=== PATIENT | male | born 1960 | race Caucasian/White ===

== ENCOUNTER 2017-10-27 08:43 | Inpatient (IN) | payer BC ==
[2017-10-25 13:16] VITALS: BP 121/82
[~2017-10-27] VITALS: Ht 182.9 cm; Wt 93.6 kg
[~2017-10-27 08:43] MED LIST: BUPIVACAINE/PF 0.25% ONE; LOSA50TA6 PO; THROMBIN 5,000 UNIT VIAL TP ONE
[2017-10-27] MEDS ORDERED: LACTATED RINGERS 1,000 ML IV SCH (09:21)
[2017-10-27] MEDS ORDERED: PROPOFOL 10 MG/ML, 20ML ONE (11:12)
[2017-10-27] MEDS ORDERED: ROCURONIUM 10 MG/ML,10ML ONE (11:12)
[2017-10-27] MEDS ORDERED: LIDOCAINE-MPF 2% ,5ML ONE (11:13)
[2017-10-27] MEDS ORDERED: CEFAZOLIN 1,000 MG ONE (11:28)
[2017-10-27] MEDS ORDERED: HYDROmorphone 2 MG/ML, 1ML ONE (11:48)
[2017-10-27] MEDS ORDERED: DEXAMETHASONE 4 MG/ML, 1ML ONE ×2 (11:50)
[2017-10-27] MEDS ORDERED: EPHEDRINE 50 MG/ML, 1ML ONE (11:59)
[2017-10-27] MEDS ORDERED: BUPIVACAINE/PF-EPI 0.25% 1:200K IM ONE (12:38)
[2017-10-27] MEDS ORDERED: ONDANSETRON 2MG/ML, 2ML ONE (13:20)
[2017-10-27] MEDS ORDERED: NEOSTIGMINE 1 MG/ML, 10ML ONE (13:22)
[2017-10-27] MEDS ORDERED: GLYCOPYRROLATE 0.2MG/1ML, 5ML ONE (13:22)
[2017-10-27] MEDS ORDERED: HYDROcodone/APAP 7.5-325MG/15ML UDC PO PRN (14:00)
[2017-10-27] MEDS ORDERED: OXYcodone 5 MG/5 ML ORAL.SOL UDC PO PRN (14:00)
[2017-10-27] MEDS ORDERED: morphine SULFATE 10 MG/ML, 1ML IV PRN (14:00)
[2017-10-27] MEDS ORDERED: MEPERIDINE/PF 25MG/0.5ML IVPush PRN (14:00)
[2017-10-27] MEDS ORDERED: ONDANSETRON 2MG/ML, 2ML IVPush PRN (14:00)
[2017-10-27] MEDS ORDERED: FENTANYL PF 100 MCG/2ML ONE (14:17)
[2017-10-27] MEDS ORDERED: OXYcodone 5 MG/5 ML ORAL.SOL UDC ONE (14:17)
[2017-10-27] MEDS: FENTANYL PF 100 MCG/2ML IV PRN ×2 (14:20→14:37)
[2017-10-27 15:28] VITALS: BP 133/84
[2017-10-27] MEDS: D5%-0.45NACL+KCL 20MEQ 1,000 ML IV SCH ×2 (15:51→22:52)
[2017-10-27] MEDS: CEFAZOLIN PMX 1GM/50ML 50 ML IVPB SCH (19:24)
[2017-10-27 21:26] VITALS: BP 139/82
[2017-10-28 00:07] VITALS: BP 133/81
[2017-10-28] MEDS: CEFAZOLIN PMX 1GM/50ML 50 ML IVPB SCH (03:49)
[2017-10-28 03:50] VITALS: BP 145/94
[2017-10-28 05:01] LABS: ANION GAP 7 mmol/L (5-15); CALCIUM 7.8 mg/dL (8.5-10.1); CHLORIDE 108 mmol/L (98-107)
[2017-10-28] MEDS: D5%-0.45NACL+KCL 20MEQ 1,000 ML IV SCH ×3 (06:08→17:57)
[2017-10-28 07:20] VITALS: BP 143/84
[2017-10-28] MEDS: ENOXAPARIN 40 MG/0.4 ML SQ SCH (07:54)
[2017-10-28] MEDS: OXYcodone/APAP 5/325MG TABLET PO PRN ×3 (11:32→19:50)
[2017-10-28 13:19] VITALS: BP 155/83
[2017-10-28 19:24] VITALS: BP 146/90
[2017-10-29] MEDS: D5%-0.45NACL+KCL 20MEQ 1,000 ML IV SCH ×3 (00:18→22:24)
[2017-10-29 01:28] VITALS: BP 147/94
[2017-10-29 05:24] LABS: CALCIUM 8.4 mg/dL (8.5-10.1); CHLORIDE 111 mmol/L (98-107)
[2017-10-29 05:27] LABS: ANION GAP 4 mmol/L (5-15); CREATININE 1.45 mg/dL (0.7-1.3)
[2017-10-29 07:27] VITALS: BP 157/94
[2017-10-29] MEDS: ENOXAPARIN 40 MG/0.4 ML SQ SCH (08:33)
[2017-10-29] MEDS ORDERED: LABETALOL 5MG/ML, 20ML IV PRN (09:00)
[2017-10-29] MEDS ORDERED: OXYC-302 PO (09:33)
[2017-10-29] MEDS: OXYcodone/APAP 5/325MG TABLET PO PRN (12:01)
[2017-10-29 13:01] VITALS: BP 136/95
[2017-10-29 19:00] VITALS: BP 133/91
[2017-10-30 03:38] VITALS: BP 144/94
[2017-10-30 05:24] LABS: ANION GAP 5 mmol/L (5-15); CALCIUM 8.5 mg/dL (8.5-10.1); CHLORIDE 109 mmol/L (98-107)
[2017-10-30 06:59] VITALS: BP 139/97
[2017-10-30] MEDS: ENOXAPARIN 40 MG/0.4 ML SQ SCH (08:00)
== END 2017-10-30 10:05 | disposition home or self-care (01) | DRG 660 ==
LOC: ORIP 08:43 → EDSTATUS 11:00 → 4NOR 15:09
PROVIDERS: ADMIT Urology; ATTEND Urology
PROC: 0TJB8ZZ Inspection of Bladder, Via Natural or Artificial Opening Endoscopic (ICD-10-PCS; 2017-10-27)
PROC: 0TT04ZZ Resection of Right Kidney, Percutaneous Endoscopic Approach (ICD-10-PCS; principal; 2017-10-27 11:00)
DX: N28.89 Other specified disorders of kidney and ureter (principal); K56.7 Ileus, unspecified; K21.9 Gastro-esophageal reflux disease without esophagitis; I10 Essential (primary) hypertension; Z79.899 Other long term (current) drug therapy
CPT/HCPCS: 36415; 80048; 82962; 85014; 85018; 86850; 86900; 88307; J0690; J1100; J1170; J1650; J2270; J2405; J2704; J2710; J3010; J3490; C1760; J3480; J7120